=== PATIENT | male | born 1960 | race Caucasian/White ===

== ENCOUNTER 2016-08-16 08:51 | Emergency (ER) | payer BC, OTHER ==
--- NOTE | 2016-08-16 09:02 | UCPHY ---
H & P Time Seen by Provider: 08/16/16 08:58 Patient Type: New HPI/ROS: 55-year-old male presents complaining of cough, cold symptoms, headache x5 days. He is not a smoker. No fevers or chills no body aches. Review of systems As per HPI General no fever no chills no weakness HEENT no eye pain no eye discharge. No eye redness, no sore throat Respiratory positive cough, no shortness of breath Cardiac no chest pain, no peripheral edema GI no abdominal pain, no diarrhea, no constipation, no nausea, no vomiting no flank pain, no hematuria, no dysuria Musculoskeletal no myalgias, no joint pain Heme no easy bruising, no easy bleeding Endo no polyuria, no polydipsia Skin no rashes, no pruritus Neuro no syncope, no dizziness, no headaches Psych is no suicidal ideation, no homicidal ideation Past Medical/Surgical History: None Social History: Alcohol socially, denies drug use Smoking Status: Never smoked Physical Exam: 55-year-old male Alert and oriented nontoxic appearance, no acute distress afebrile Atraumatic normocephalic Extraocular muscles intact, anicteric Nares mild yellowish discharge Oropharynx mild erythema no tonsillar swelling no exudate no uvular deviation, tolerating own secretions Neck supple no lymphadenopathy Lungs clear to auscultation bilaterally Heart regular rate and rhythm Abdomen normoactive bowel sounds soft nontender Extremities no cyanosis clubbing or edema Skin no rash Constitutional: Initial Vital Signs Temperature (C) 36.6 C 08/16/16 09:03 Heart Rate 70 08/16/16 09:03 Respiratory Rate 18 08/16/16 09:03 Blood Pressure 170/88 H 08/16/16 09:03 O2 Sat (%) 97 08/16/16 09:03 O2 Delivery Mode Room Air Allergies/Adverse Reactions: No Known Allergies Allergy (Unverified 09/03/10 11:09) Home Medications: Medication Instructions Recorded NO HOME MEDICATIONS 09/03/10 Medical Decision Making ED Course/Re-evaluation: Patient seen and evaluated for cold symptoms cough, headache Differential diagnosis URI, bronchitis, pneumonia, pharyngitis, influenza Patient's physical exam completely benign consistent with a cold/URI Lungs clear to auscultation no rhonchi no wheezing No evidence for pneumonia Throat negative erythema negative exudate no evidence for pharyngitis Patient well appearing no evidence for flu Impression URI Plan Symptomatic/supportive care Follow up with primary care physician Return if having problems of any sort Departure - Departure Disposition: Home, Routine, Self-Care Clinical Impression: Upper respiratory infection, acute Condition: Good Instructions: Upper Respiratory Infection (ED) Referrals: Elias Cavanaugh MD [Primary Care Provider] - As per Instructions - PQRS PQRS Measurement: na
[2016-08-16 09:06] VITALS: BP 170/88; PULSE 70; RESP 18; TEMP 98; O2SAT 97
== END 2016-08-16 09:34 | disposition home or self-care (01) ==
LOC: CED 08:51
DX: J06.9 Acute upper respiratory infection, unspecified (principal)
CPT/HCPCS: 99202-PO; G0463-PO